=== PATIENT | female | born 1975 | race Caucasian/White ===

== ENCOUNTER 2021-02-16 14:55 | Outpatient (CLI) | payer OTHER, SELFPAY ==
--- NOTE | ~2021-02-16 | CT_ITS ---
EXAMINATION: CT abdomen pelvis wo con DATE: 02/16/2021 15:28 INDICATION: Right lower quadrant abdominal pain and tenderness TECHNIQUE: Computed tomography (CT) of the abdomen and pelvis was performed without intravenous contr ast. Automated exposure control and iterative reconstruction technique were employed. Exam dose: 345 .05 mGy-cm total exam DLP. COMPARISON: None. FINDINGS: The lung bases are clear of infiltrate or consolidation. Normal heart size. No pericardial or pleural effusion. The gallbladder is contracted. Cholelithiasis is noted. No pericholecystic fluid or fat stranding is evident. The liver, spleen, pancreas, adrenal glands and kidneys are unremarkable on this limited noncontrast examination. No bile duct or pancreatic duct dilatation. No urinary tract calculus or hydroureteronephrosis. Normal caliber of the abdominal aorta. No intraperitoneal or retroperitoneal or pelvic mass lesion o r lymphadenopathy. The uterus, adnexal areas and urinary bladder are unremarkable. Normal appendix. No bowel obstruction or intraperitoneal free air. No suspicious osteolytic or osteoblastic lesions. There is a small fat containing umbilical hernia. IMPRESSION: Cholelithiasis Normal appendix Reviewed, dictated and finalized at [facility]. Reviewed, dictated and finalized at location [facility].
== END 2021-02-16 14:56 | disposition home or self-care (01) ==
LOC: ANHIMG 15:12
PROVIDERS: PCP Family Medicine Adolescent Medicine; Visit Provider Physician Assistant
DX: R10.31 Right lower quadrant pain (principal); K80.20 Calculus of gallbladder without cholecystitis without obstruction
CPT/HCPCS: 74176

== ENCOUNTER 2023-07-26 17:13 | Outpatient (CLI) | payer OTHER, SELFPAY ==
[2023-07-26 17:37] LABS: Basophils Percent Auto 0.4 % (0.2-1.2); Eosinophils Absolute Auto 0.1 K/mm3 (0-0.3); Eosinophils Percent Auto 1.4 % (0-4.4); Hematocrit 42.2 % (37.0-47.0); Hemoglobin 14.4 g/dL (12.0-15.0); Immature Granulocyte Absolute 0.02 K/mm3 (0.00-0.031); Immature Granulocyte Percent A 0.3 % (0-0.5); Lymphocytes Absolute Auto 2.74 K/mm3 (0.9-3.2); Lymphocytes Percent Auto 35.3 % (18.3-44.2); Mean Corpuscular HGB Conc 34.1 g/dl (32-36); Mean Corpuscular Hemoglobin 30.8 pg (26-34); Mean Corpuscular Volume 90.2 fl (80-100); Mean Platelet Volume 8.6 fl (7.4-10.4); Monocytes Absolute Auto 0.6 K/mm3 (0.1-0.6); Monocytes Percent Auto 8.2 % (2.6-8.5); Neutrophils Absolute Auto 4.2 K/mm3 (1.3-6.7); Neutrophils Percent Auto 54.4 % (45.5-73.1); Platelet Count Result 263 k/mm3 (150-375); Red Blood Count 4.68 M/mm3 (4.2-5.4); Red Cell Distribution Width 11.6 % (11.5-14.5); White Blood Count 7.8 K/mm3 (4.5-10.0)
[2023-07-26 19:02] LABS: Iron 101 ug/dL (37-170)
[2023-07-26 19:12] LABS: Percent Iron Saturation 23 % (20-50)
[2023-07-29 18:12] LABS: FSH 99.3 mIU/mL (***); Progesterone 0.6 ng/mL (***)
[2023-07-30 18:25] LABS: Anti Mullerian Hormone,Female 0.01 ng/mL
[2023-08-03 21:28] LABS: Estradiol, Ultrasensitive 19 pg/mL
== END 2023-07-26 17:14 | disposition home or self-care (01) ==
LOC: ANHLAB 17:15
PROVIDERS: PCP Family Medicine Adolescent Medicine; Visit Provider Obstetrics & Gynecology
DX: N92.0 Excessive and frequent menstruation with regular cycle (principal); N92.6 Irregular menstruation, unspecified
CPT/HCPCS: 36415; 82670; 83001; 83540; 83550; 84144; 84443; 85025

== ENCOUNTER 2023-09-03 01:31 | Day surgery (SDC) | payer OTHER, SELFPAY ==
[2023-08-22 12:42] VITALS: BMI 26.5
--- NOTE | 2023-08-22 12:53 | SUR.PREOP ---
Report to the Outpatient Waiting Room, entrance under the green pavilion located off [facility], at time 1030 on date 09/03/23. Planned Procedure Time: _1230_. Time changes happen often and if your time is changed the preop area will call you the afternoon before. - You and your visitor will be asked to self-screen and do not enter if you have any COVID symptoms. - A mask is optional within the hospital at this time. Patients may have clear liquids (water, carbonated beverages, clear teas, apple juice) until 3 hours prior to surgery with a maximum of 20 ounces. - No food from midnight until time of surgery BEFORE 0930AM - Infants may have breast milk until 4 hours before surgery, infant formula 6 hours prior to surgery. - Children will be allowed to drink immediately following surgery. If applicable, please bring a bottle or sippy cup to assist with drinking. Juice, water, soda, and popsicles are readily available. For infants on formula, please bring formula the day of surgery. Pacifiers are allowed. Take the following medications with a SIP of water the morning of surgery: ____BUPROPION____ DO NOT STOP ANY OF YOUR OTHER PRESCRIPTION MEDICATIONS PRIOR TO SURGERY ?EXCEPT THE FOLLOWING Medications to discontinue per physician ___HOLD VITAMINS AND SUPPLEMENTS FOR 3 DAYS PRIOR Date to take last dose Please no make-up, nail welsh, hairspray, perfume, deodorant, or body powder the day of surgery. No jewelry (including any body piercings) or valuables the day of surgery, leave them at home. Please take a shower or bath the night before, or the morning of, surgery with an antibacterial soap. Wear comfortable, loose fitting clothing. Children are encouraged to wear pajamas. - Jewelry must be removed prior to entering the operating room. Rings and piercings that are not removed may be cut off. - The hospital will not accept responsibility for valuables. - Please leave all valuables, including medications, at home the day of surgery. If you are going home after surgery, a licensed stock car driver must drive you home. - NO public transportation without another adult if you receive anesthesia. - We recommend that an adult stay with you for 24 hours following discharge. - We also recommend that you do not drive, make important decision, drink alcoholic beverages, or take any drugs that were not prescribed by your health care provider for at least 24 hours after your discharge time. For Pediatric surgeries, we recommend two adults accompany the child home. Follow any additional instructions given to you from your surgeon. If you or anyone in your household have experienced Covid symptoms in the past week, please notify your surgeon or the nurse liaison at the phone number below for possible testing. Telephone instructions given to _PATIENT__and asked if any additional questions and then verbalized understanding. Patient advised to call surgeon office or pre surgery nurse liaison [phone] if any additional questions.
--- NOTE | 2023-09-03 07:29 | WPDHPUPDATE1 ---
History and Physical Update Update Date/Time: 09/03/23 07:29 History and Physical has been reviewed, including an updated exam of the patient. There are NO changes in the patient's condition. Risks, benefits, and alternatives have been discussed and questions answered. Patient agrees to proceed with HSC, D&C, with Diane endometrial ablation.
[2023-09-03 11:00] VITALS: BP 112/66; PULSE 76; RESP 16; TEMP 36.7; O2SAT 100
[2023-09-03] MEDS: LACTATED RINGERS 1,000 ML 30 ML IV CONT (11:05)
[2023-09-03] MEDS: ACETAMINOPHEN 500 MG TABLET 1000 MG PO (11:06)
--- NOTE | 2023-09-03 11:08 | WPDANESEPPF ---
Anes - Initial Pre Proc Eval Procedure: Operation Date: 09/03/23 12:30 Proposed Procedures p Hysteroscopy Dilation and Curettage Diane Endometrial Ablation - Trista Godfrey MD Date/Time: 09/03/23 11:08 Surgeon: Trista Godfrey MD Pre Op Diagnosis: abnormal uterine bleeding Patient Data Age: 48 Gender: F Height: 1.57 m Weight: 65.77 kg Allergies Allergy/AdvReac Type Severity Reaction Status Date / Time Sulfa (Sulfonamide Allergy Severe Hives Verified 08/22/23 12:51 Antibiotics) Home Medications Medication Instructions Recorded Confirmed Type bupropion HCl 300 mg 24 hr tablet, 300 mg PO DAILY #90 tabs 06/18/23 08/22/23 Rx extended release lisinopril 20 mg tablet 20 mg PO DAILY #90 tabs 06/18/23 08/22/23 Rx alprazolam 0.5 mg tablet 0.5 mg PO BID anxie #30 tabs 08/09/23 08/22/23 Rx Patient hx anesthesia problems: none Family hx anesthesia problems: other (mother slow to awaken) Results Review: All pre-operative results and documents have been reviewed as part of the pre-operative evaluation. [facility] Past Medical History Medical History Screening for breast cancer Surgical History Surgical History History of ankle surgery Tubal ligation status Family History Family History Father Hypertension Family history of diabetes mellitus in first degree relative Mother Hypertension No family history of diabetes mellitus Grandparent Carcinoma of colon Family history of malignant neoplasm of breast Diabetes mellitus Social History Social History Smoking status: Never smoker Second hand tobacco smoke exposure: No Alcohol intake: current Substance use: current Substance use type: marijuana Living arrangements: with family Occupation/Education: occupation Gender identity (if verbalized by the patient): Female Spiritual care concerns: No Agree to blood products: Yes Anes - Eval Final PreProcedure Day of Procedure 09/03/23 11:08 Patient weight: overweight Heart: regular rate and rhythm Lungs: clear to auscultation Airway: Mallampati scale class II Neurological: alert and oriented Last oral intake: >/= 8 hours ASA classification: II Emergent: no Anesthetic plan: proceed Anesthesia type and monitoring: general GIVS and standard monitoring Results Review: All pre-operative results and documents have been reviewed as part of the pre-operative evaluation. Informed Consent: The patient's anesthetic plan and its attendant risks and benefits were discussed with the patient/family/POA. Questions were solicited and answers provided to the satisfaction of the patient/family/POA.
--- NOTE | 2023-09-03 11:41 | W.PM.PROC2 ---
Procedure Note - Detailed Date of Procedure 09/03/23 Pre-op Diagnosis abnormal uterine bleeding Post-op Diagnosis Same Procedure Performed Hysteroscopy, D&C, with Diane endometrial ablation Surgeon Trista Godfrey MD Anesthesia MAC Findings Uterus sounded to 10cm; cervix 6cm. Normal endometrial cavity; thin lining. Bilateral tubal ostia visualized. Diane performed w/o issue. Good hemostasis at end of case. Description of Procedure Colette was taken to the operating room where she was placed under sedation without complications. She was then prepped and draped in the usual sterile fashion in the dorsal lithotomy position with her legs in low Uche stirrups. A time-out was performed and no perioperative antibiotics were indicated. A bivalve speculum was placed within the vagina where the cervix was easily identified. The anterior lip of the cervix was grasped with a single-tooth tenaculum. The cervix was then serially dilated to allow for the hysteroscope. The hysteroscope was advanced into the uterine cavity with the above findings noted. A curettage was then performed until a good uterine cry was felt throughout the uterus. The Diane endometrial ablation device was then placed within the endometrial cavity; set to 6cm. The procedure was performed per weaver needle loom's instructions in the correct manner without complications. Good hemostasis was noted. All instruments were removed from the vagina. Sponge, lap, instrument, and needle counts were correct at the end of the procedure. Patient was awoken from anesthesia and taken to recovery with plans of same-day discharge home. Estimated Blood Loss 5 IV Fluids 500 (Fluid deficit: 40cc) Pathology Yes (endometrial curettings) Complications No immediate complications Condition Stable Disposition Same day [facility] Billing Surgery - Charge Forward: Surgery Billing
[2023-09-03 11:42] VITALS: BP 107/58; PULSE 77; RESP 12
[2023-09-03 12:12] VITALS: BP 107/65; PULSE 69; RESP 12
[2023-09-03] MEDS: fentaNYL CITRATE INJ (*CRX) 100 MCG/2 ML VIAL 25 MCG IV PUSH ×3 (12:15→12:26)
[2023-09-03 12:42] VITALS: BP 112/65; PULSE 63; RESP 12
[2023-09-03] MEDS: oxyCODONE HCL (*CRX) 5 MG TAB IR PO (12:57)
[2023-09-03 13:12] VITALS: BP 114/70; PULSE 69; RESP 12
== END 2023-09-03 13:22 | disposition home or self-care (01) ==
PROVIDERS: PCP Family Medicine Adolescent Medicine; Visit Provider Obstetrics & Gynecology
PROC: 0U5B8ZZ Destruction of Endometrium, Via Natural or Artificial Opening Endoscopic (ICD-10-PCS; CPT 58563; principal; 2023-09-03 12:30)
DX: N93.9 Abnormal uterine and vaginal bleeding, unspecified (principal); F12.90 Cannabis use, unspecified, uncomplicated
CPT/HCPCS: 58563; 88305; A9270; J1100; J1885; J2250; J2405; J2704; J3010; J7120

== ENCOUNTER 2024-05-01 22:49 | Emergency (ER) | payer OTHER, SELFPAY ==
--- NOTE | ~2024-05-01 | CT_ITS ---
CT of the Abdomen and Pelvis: Indication: Abdominal pain Technique: 2.5 mm axial scans were obtained through the abdomen and pelvis following intravenous adm inistration of 100 cc of Omnipaque 350. Dose reduction technique was used on this scan by utilizing a utomated exposure control and iterative reconstruction technique. The dose-length product (DLP) was 3 19.71 mGy-cm. COMPARISON: 02/16/2021 Findings: Scans through the lung bases are unremarkable. Stable small hypodense structure in the superior right hepatic lobe. Stable probable hemangioma in th e inferior right hepatic lobe. The spleen, pancreas, gallbladder, adrenals and kidneys are within nor mal limits. No evidence of aortic aneurysm. No lymphadenopathy. No bowel obstruction or bowel wall thickening. There is no evidence to suggest acute appendicitis. Images through the pelvis were performed. Urinary bladder unremarkable. No pelvic mass seen. Question able arcuate versus septate uterus. No ascites. Impression: Probable benign hepatic hemangiomas, as above. Possible arcuate versus septate uterus. Consider nonemergent MR as indicated. Reviewed, dictated and finalized at location . Impression: Probable benign hepatic hemangiomas, as above. Possible arcuate versus septate uterus. Consider nonemergent MR as indicated.
[2024-05-01 22:52] VITALS: BP 143/62; PULSE 96; RESP 18; TEMP 36.4; O2SAT 100
[2024-05-01 23:17] LABS: Basophils Percent Auto 0.3 % (0.2-1.2); Eosinophils Percent Auto 0.4 % (0-4.4); Hematocrit 37.3 % (37.0-47.0); Hemoglobin 13.2 g/dL (12.0-15.0); Immature Granulocyte Absolute 0.02 K/mm3 (0.00-0.031); Immature Granulocyte Percent A 0.2 % (0-0.5); Lymphocytes Absolute Auto 1.59 K/mm3 (0.9-3.2); Lymphocytes Percent Auto 16.5 % (18.3-44.2); Mean Corpuscular HGB Conc 35.4 g/dl (32-36); Mean Corpuscular Volume 87.6 fl (80-100); Mean Platelet Volume 8.8 fl (7.4-10.4); Monocytes Absolute Auto 0.8 K/mm3 (0.1-0.6); Monocytes Percent Auto 7.8 % (2.6-8.5); Neutrophils Absolute Auto 7.2 K/mm3 (1.3-6.7); Neutrophils Percent Auto 74.8 % (45.5-73.1); Platelet Count Result 227 k/mm3 (150-375); Red Blood Count 4.26 M/mm3 (4.2-5.4); Red Cell Distribution Width 11.8 % (11.5-14.5); White Blood Count 9.6 K/mm3 (4.5-10.0)
[2024-05-01 23:27] LABS: Alanine Aminotransferase 11 U/L (6-35); Albumin Level 4.7 g/dL (3.5-5.1); Alkaline Phosphatase 106 U/L (38-126); Anion Gap 9 mmol/L (4-12); Aspartate Amino Transferase 20 U/L (14-36); Bilirubin,Total 0.4 mg/dL (0.2-1.3); Blood Urea Nitrogen 8 mg/dL (7-17); Calcium 9.2 mg/dL (8.4-10.2); Carbon Dioxide 22 mmol/L (22-30); Chloride 101 mmol/L (98-107); Estimated CRCL calculation 68 ml/min; Estimated Glomerular Filt Rate > 60; Glucose 113 mg/dL (65-110); Lipase 140 U/L (23-300); Potassium 3.8 mmol/L (3.4-5.0); Sodium 132 mmol/L (137-145)
[2024-05-02 01:05] LABS: Appearance Urine Clear (Clear); Bilirubin Urine Negative (Negative); Blood Urine Negative (Negative); Color Urine Yellow (Yellow); Glucose Urine UA Negative (Negative); Ketones Urine Trace mg/dL (Negative); Leukocyte Esterase Ur Negative LEU/UL (Negative); Nitrate Urine Negative (Negative); Protein Urine Negative (Negative); Specific Grav Ur 1.016 (1.001-1.035); Urobilinogen Urine 0.2 mg/dL (<2.0); pH Urine 5.5 (5.0-9.0)
[2024-05-02 01:09] LABS: Add Urine Microscopic? NO
[2024-05-02] MEDS: ONDANSETRON INJ 4 MG/2 ML VIAL IV PUSH (02:09)
[2024-05-02] MEDS: MORPHINE SULFATE (*CRX) 4 MG/ML INJ IV PUSH (02:09)
--- NOTE | 2024-05-02 02:28 | ED.ABDPAIN ---
HPI - Abdominal Pain General Chief Complaint: Abdominal Pain <ADAM Brooks Last Filed: 05/02/24 03:43> Stated Complaint: flank pain <ADAM Brooks Last Filed: 05/02/24 03:43> Time Seen by Provider: 05/02/24 01:37 <ADAM Brooks Last Filed: 05/02/24 03:43> Source: patient <ADAM Brooks Last Filed: 05/02/24 03:43> Mode of arrival: ambulatory <ADAM Brooks Last Filed: 05/02/24 03:43> Limitations: no limitations <ADAM Brooks Last Filed: 05/02/24 03:43> History of Present Illness HPI narrative: Patient is a 48-year-old female who presents the ED with report of right-sided abdominal pain. Patient reports pain began earlier today. States pain was fairly severe with intermittent episodes of stabbing pain. Present throughout her right lower abdomen, radiating across her lower abdomen and around to her right lower back. worse with any type of movement. She took ibuprofen and 1 of her 's Vicodin without relief. Denies having history of similar pain. Denies history of kidney stones. Denies nausea, vomiting, diarrhea, constipation, dysuria, hematuria fevers. patient states pain is improved currently. <ADAM Brooks Last Filed: 05/02/24 03:43> Related Data Allergies/Adverse Reactions: Allergies Allergy/AdvReac Type Severity Reaction Status Date / Time Sulfa (Sulfonamide Allergy Severe Hives Verified 10/03/23 17:12 Antibiotics) <ADAM Brooks Last Filed: 05/02/24 03:43> Review of Systems Review of Systems: CONSTITUTIONAL: Denies fever, chills, or sweats. GASTROINTESTINAL: See HPI. GENITOURINARY: Denies dysuria or hematuria. MUSCULOSKELETAL: See HPI. <ADAM Brooks Last Filed: 05/02/24 03:43> All systems reviewed & are unremarkable except as noted in HPI and below <Haylee Mcgill PA-C - Last Filed: 05/02/24 03:43> [facility] Past Medical History Medical History: Medical History Screening for breast cancer <Haylee Mcgill PA-C - Last Filed: 05/02/24 03:43> Surgical History Surgical History: Surgical History History of ankle surgery History of endometrial ablation Hysteroscopy, D&C, with Diane endometrial ablation 09/03/2023 Tubal ligation status (08/2023) <Haylee Mcgill PA-C - Last Filed: 05/02/24 03:43> Family History Family History: Family History Father Hypertension Family history of diabetes mellitus in first degree relative Mother Hypertension No family history of diabetes mellitus Grandparent Carcinoma of colon Family history of malignant neoplasm of breast Diabetes mellitus <Haylee Mcgill PA-C - Last Filed: 05/02/24 03:43> Social History Social History: Social History Smoking status: Never smoker Second hand tobacco smoke exposure: No Alcohol intake: current Substance use: current Substance use type: marijuana Living arrangements: with family Occupation/Education: occupation Gender identity (if verbalized by the patient): Female Spiritual care concerns: No Agree to blood products: Yes <Haylee Mcgill PA-C - Last Filed: 05/02/24 03:43> Exam Narrative: GENERAL: Well appearing, well-nourished, non-toxic, in no acute distress. HEAD: Normocephalic, atraumatic. RESPIRATORY: Airway patent, respirations nonlabored. Clear to auscultation bilaterally, no rales, rhonchi, wheezing. CARDIOVASCULAR: Regular rate and rhythm without murmurs, rubs, or gallops. ABDOMINAL: Soft, Mild tenderness throughout right lower/ mid/ lateral abdomen, nondistended. Normoactive BS. positive CVA tenderne
[2024-05-02 06:09] VITALS: BP 138/76; PULSE 87; RESP 17; O2SAT 99
== END 2024-05-02 06:09 | disposition home or self-care (01) ==
PROVIDERS: Emergency Provider Emergency Medicine; PCP Family Medicine Adolescent Medicine
DX: R10.31 Right lower quadrant pain (principal); R93.2 Abnormal findings on diagnostic imaging of liver and biliary tract; R93.89 Abnormal findings on diagnostic imaging of other specified body structures
CPT/HCPCS: 36415; 74177; 80053; 81003; 81025; 83690; 85025; 96374; 96375; 99284; J2270; J2405; Q9967

== ENCOUNTER 2024-08-26 12:03 | Outpatient (CLI) | payer OTHER, SELFPAY ==
--- NOTE | ~2024-08-26 | XR_ITS ---
XR ribs LT 2V w CXR 2V Ordering provider: Trisha Rees APRN History: . R05.3 - Chronic cough . Comparison: April 06, 2011 FINDINGS: BONES: No acute rib fracture. MEDIASTINUM: The cardiac silhouette is not enlarged. LUNGS: No infiltrates, effusions or pneumothorax. OTHER: No free air under the diaphragm. IMPRESSION: 1. No acute osseous abnormality left ribs and chest. (Note: subtle/nondisplaced rib fractures can be occult on plain films and if there is continued clinical suspicion for rib fracture, recommend fol low up CT chest.) 2. No acute cardiopulmonary findings. Reviewed, dictated and finalized at location [facility]. IMPRESSION: 1. No acute osseous abnormality left ribs and chest. (Note: subtle/nondispla berenice rib fractures can be occult on plain films and if there is continued clinic al suspicion for rib fracture, recommend follow up CT chest.) 2. No acute cardiopulmonary findings.
== END 2024-08-26 12:04 | disposition home or self-care (01) ==
LOC: MICIMG 12:04
PROVIDERS: PCP Family Medicine Adolescent Medicine; Visit Provider Nurse Practitioner Family
DX: R05.3 Chronic cough (principal); R07.81 Pleurodynia
CPT/HCPCS: 71046; 71100

== ENCOUNTER 2025-09-18 00:46 | Day surgery (SDC) | payer OTHER, SELFPAY ==
[2025-09-07 10:28] VITALS: BMI 24.2
--- OUTSIDE RECORDS SUMMARY | 2025-09-18 00:49 | XMS_ITS | Clinical Summary ---
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 Gender Identity Not on file Sexual Orientation Not on file Plan of Treatment Health Maintenance Due Date Last Done Comments DTAP/TDAP/TD VACCINES (1 - Tdap) 1995 HEPATITIS B VACCINES (1 of 3 - 19+ 3-dose series) 1995 HPV/Cotest (21-29) 1997 CERVICAL CANCER SCREENING 2006 HPV/Cotest (30-65) 2006 PAP SMEAR 2006 COLORECTAL SCREENING 2021 Colorectal Cancer Screening 2021 FIT-DNA Q 3 years 2021 FIT/FOBT Q 1 year 2021 Flex Sig/CT Colonography Q 5 years 2021 INFLUENZA VACCINE (#1) 2025 BREAST CANCER SCREENING 06/17/2025 06/17/2024, 12/24 Procedures Procedure Name Priority Date/Time Associated Diagnosis Comments MAMMO DIAG UNI RIGHT 3D NAVDEEP W OR WO CAD Routine 06/17/2024 10:00 AM CDT Breast lump on right side at 3 o'clock position from Last 3 Months or Most Recently Relevant to Health Maintenance Results * MAMMO 3D NAVDEEP DIAGNOSTIC UNI RT 3D W OR WO CAD (06/17/2024 10:00 AM CDT) Anatomical Region Laterality Modality Breast Right Mammography 06/17/2024 10:0 0 AM CDT Impressions 06/17/2024 10:14 AM CDT IMPRESSION: BI-RADS 0, incomplete, oval 2.5 cm mass, 0.4 cm posteriorly to the center nipple needs to be further evaluated with targeted and diagnostic breast ultrasound, most likely consistent with either a cyst or fibroadenoma. Narrative 06/17/2024 10:14 AM CDT Right-sided diagnostic mammogram. Comparison is made with bilateral screening mammogram from 12/24/2023. CLINICAL HISTORY: Patient is 48-year-old female who had a baseline mammogram on 12/24/2023 which was a baseline mammogram and which was normal. Recently, the patient started to feel lump within the right breast and she is coming for further evaluation. TECHNIQUE: Right sided breast at CC and MLO and ML positions were obtained with a marker on the mass and reviewed with 2-D mammogram and tomosynthesis. FINDINGS: The breast parenchyma is heterogeneously dense which may decrease sensitivity of the study, category C. On cc view, marked there is seen 3 cm from the nipple within the outer breast and there is very vague oval-like mass measuring 2.5 cm. On MLO image, again seen is no well circumscribed oval mass which is 2.4 cm behind the nipple, it is oval measuring approximately 2.3 cm. On MLO view, there is a well circumscribed mass which measures 2.6 cm and it is 2.5 cm from the nipple. There are no other suspicious findings are seen throughout the breast parenchyma. Trisha Rees SENIOR TRAINER MAMMO ORDERABLES Final R esult from Last 3 Months or Most Recently Relevant to Health Maintenance Insurance [facility] [address] IMAGING DIRECT
[2025-09-18 10:44] VITALS: BP 121/74; PULSE 90; RESP 20; TEMP 36.1; O2SAT 100
[2025-09-18] MEDS: LACTATED RINGERS 1,000 ML 150 ML IV CONT (10:55)
--- NOTE | 2025-09-18 11:02 | WPDANESEPPF ---
Anes - Initial Pre Proc Eval Procedure: Operation Date: 09/18/25 11:30 Proposed Procedures p Screening Colonoscopy - Edouard Chiang MD Date/Time: 09/18/25 11:02 Surgeon: Edouard Chiang MD Pre Op Diagnosis: Encounter for screening for malignant neoplasm of Patient Data Age: 50 Gender: F Height: 1.57 m Weight: 60 kg Last Vital Signs Temp 36.1 C L 09/18/25 10:44 Pulse 90 09/18/25 10:44 Resp 20 09/18/25 10:44 BP 121/74 09/18/25 10:44 Pulse Ox 100 09/18/25 10:44 O2 Del Method Room Air 09/18/25 10:44 Allergies Allergy/AdvReac Type Severity Reaction Status Date / Time Sulfa (Sulfonamide Allergy Severe Hives Verified 09/18/25 10:42 Antibiotics) Home Medications ?Medication ?Instructions ?Recorded ?Confirmed ?Type ibuprofen 800 mg tablet 800 mg PO TID #30 tabs 09/03/23 09/07/25 Rx dicyclomine 20 mg tablet 20 mg PO QID PRN abdominal 05/02/24 09/07/25 Rx discomfort #20 tabs albuterol sulfate 90 mcg/actuation See Rx Instructions .Route 09/02/24 09/07/25 Rx aerosol inhaler .COMPLEX #9 grams alprazolam 0.5 mg tablet 0.5 mg PO BID anxie #30 tabs 01/26/25 09/07/25 Rx aripiprazole 2 mg tablet See Rx Instructions .Route 07/29/25 09/18/25 Rx .COMPLEX #90 tabs bupropion HCl 300 mg 24 hr tablet, 300 mg PO DAILY #90 tabs 07/29/25 09/18/25 Rx extended release lisinopril 20 mg tablet 20 mg PO DAILY #90 tabs 07/29/25 09/18/25 Rx Patient hx anesthesia problems: none Family hx anesthesia problems: none Results Review: All pre-operative results and documents have been reviewed as part of the pre-operative evaluation. [facility] Past Medical History Medical History (Updated 09/18/25 @ 06:53 by Dion Buck DO) Depression Anxiety Essential (primary) hypertension Menorrhagia Screening for breast cancer Surgical History Surgical History History of endometrial ablation Hysteroscopy, D&C, with Diane endometrial ablation 09/03/2023 History of ankle surgery Tubal ligation status (08/2023) Family History Family History Father Hypertension Family history of diabetes mellitus in first degree relative Mother Hypertension No family history of diabetes mellitus Grandparent Carcinoma of colon Family history of malignant neoplasm of breast Diabetes mellitus Social History Social History (Updated 09/18/25 @ 11:02 by Dion Buck DO) Smoking status: Never smoker Second hand tobacco smoke exposure: No Alcohol intake: current Drinks per week: 1 Substance use: current Substance use type: marijuana Other substance usage details: daily Do You Feel Safe in your Home?: Yes Lack of Transportation: No Lack of Food: Never True Current Housing: I Have Housing Concerned About Future Housing: No Difficulty Paying Gas/Electric Bills: No Difficulty Paying for Meds: Decline to Answer Currently Unemployed: No Education: High School Diploma/GED Difficulty w/ Childcare or Family Care: No Living arrangements: with family Occupation/Education: occupation Gender identity (if verbalized by the patient): Female Spiritual care concerns: No Agree to blood products: Yes Anes - Eval Final PreProcedure Day of Procedure 09/18/25 11:02 Patient weight: normal Heart: regular rate and rhythm Lungs: clear to auscultation and normal air movement Airway: Mallampati scale class II Neurological: alert and oriented Last oral intake: >/= 8 hours ASA classification: III Emergent: no Anesthetic plan: proceed Anesthesia type and monitoring: general GIVS and standard monitoring Results Review: All pre-operative results and documents have been reviewed as part of the pre-operative evaluation. Informed Consent: The patient's anesthetic plan and its attendant risks and benefits were discussed with the patient/family/POA. Questions were solicited and answers provided to the satisfaction of the patient/family/POA.
--- NOTE | 2025-09-18 11:03 | PM.IMHP ---
H&P: HPI History of Present Illness Date/Time: 09/18/25 11:03 Chief Complaint: Screening colonoscopy Narrative: This is the patient's first colonoscopy. There are no GI symptoms and there is no family history of colorectal cancer. Review of Systems Review of Systems: All systems reviewed & are unremarkable except as noted in HPI and below PMFSH Past Medical History Medical History (Updated 09/18/25 @ 06:53 by Dion Buck DO) Depression Anxiety Essential (primary) hypertension Menorrhagia Screening for breast cancer Surgical History Surgical History History of endometrial ablation Hysteroscopy, D&C, with Diane endometrial ablation 09/03/2023 History of ankle surgery Tubal ligation status (08/2023) Family History Family History Father Hypertension Family history of diabetes mellitus in first degree relative Mother Hypertension No family history of diabetes mellitus Grandparent Carcinoma of colon Family history of malignant neoplasm of breast Diabetes mellitus Social History Social History (Updated 09/18/25 @ 11:02 by Dion Buck DO) Smoking status: Never smoker Second hand tobacco smoke exposure: No Alcohol intake: current Drinks per week: 1 Substance use: current Substance use type: marijuana Other substance usage details: daily Do You Feel Safe in your Home?: Yes Lack of Transportation: No Lack of Food: Never True Current Housing: I Have Housing Concerned About Future Housing: No Difficulty Paying Gas/Electric Bills: No Difficulty Paying for Meds: Decline to Answer Currently Unemployed: No Education: High School Diploma/GED Difficulty w/ Childcare or Family Care: No Living arrangements: with family Occupation/Education: occupation Gender identity (if verbalized by the patient): Female Spiritual care concerns: No Agree to blood products: Yes Meds Home Medications and Allergies Home Medications ?Medication ?Instructions ?Recorded ?Confirmed ?Type ibuprofen 800 mg tablet 800 mg PO TID #30 tabs 09/03/23 09/07/25 Rx dicyclomine 20 mg tablet 20 mg PO QID PRN abdominal 05/02/24 09/07/25 Rx discomfort #20 tabs albuterol sulfate 90 mcg/actuation See Rx Instructions .Route 09/02/24 09/07/25 Rx aerosol inhaler .COMPLEX #9 grams alprazolam 0.5 mg tablet 0.5 mg PO BID anxie #30 tabs 01/26/25 09/07/25 Rx aripiprazole 2 mg tablet See Rx Instructions .Route 07/29/25 09/18/25 Rx .COMPLEX #90 tabs bupropion HCl 300 mg 24 hr tablet, 300 mg PO DAILY #90 tabs 07/29/25 09/18/25 Rx extended release lisinopril 20 mg tablet 20 mg PO DAILY #90 tabs 07/29/25 09/18/25 Rx Allergies Allergy/AdvReac Type Severity Reaction Status Date / Time Sulfa (Sulfonamide Allergy Severe Hives Verified 09/18/25 10:42 Antibiotics) Vital Signs Vital Signs - 24 hr 09/18/25 10:44 Temperature 97 F L Pulse Rate 90 Respiratory Rate 20 Blood Pressure 121/74 Pulse Oximetry 100 Oxygen Delivery Room Air Exam Const: General: cooperative and healthy appearing Resp: Effort & Inspection: normal respiratory effort and able to speak in complete sentences Auscultation: clear to auscultation bilaterally Cardio: Rate: regular rate Rhythm: regular rhythm GI: Inspection: normal to inspection GI Palp: No No hepatosplenomegaly present Auscultation: normal bowel sounds Rectal Exam: deferred Skin: General skin exam: normal color Psych: Appearance: grossly normal Mental Status: mental status grossly normal Assessment and Plan Assessment and plan (1) Colon cancer screening: Code(s): Z12.11 - Encounter for screening for malignant neoplasm of colon Status: Acute Assessment and Plan: The patient is deemed a good candidate for the procedure. Consent signed. Will proceed.
[2025-09-18 11:19] VITALS: BP 100/57; PULSE 84; RESP 20; O2SAT 100
[2025-09-18 11:29] VITALS: BP 117/71; PULSE 86; RESP 21; O2SAT 100
[2025-09-18 11:39] VITALS: BP 118/76; PULSE 81; RESP 20; O2SAT 100
== END 2025-09-18 11:45 | disposition home or self-care (01) ==
PROVIDERS: PCP Family Medicine Adolescent Medicine; Referring Provider Nurse Practitioner Family; Visit Provider Internal Medicine Gastroenterology
PROC: 0DJD8ZZ Inspection of Lower Intestinal Tract, Via Natural or Artificial Opening Endoscopic (ICD-10-PCS; CPT 45378; principal; 2025-09-18 11:30)
DX: Z12.11 Encounter for screening for malignant neoplasm of colon (principal); F12.90 Cannabis use, unspecified, uncomplicated
CPT/HCPCS: 45378; J2704; J7120